=== PATIENT | male | born 2000 ===

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

== ENCOUNTER 2022-02-07 20:57 | Emergency (ER) | payer SELFPAY ==
[2022-02-07] MEDS ORDERED: Penicillin G Benzathine/Procaine 600-600 1.2 Millunits/2 ML Syringe IM ONE (22:46)
== END 2022-02-07 23:10 | disposition home or self-care (01) ==
LOC: DL.ED 20:57
DX: J02.0 Streptococcal pharyngitis (principal); Z20.822 Contact with and (suspected) exposure to COVID-19
CPT/HCPCS: 87430; 87635; 96372; 99284; J0558; U0002